=== PATIENT | male | born 1985 | race American Indian/Alaskan Native ===

== ENCOUNTER 2020-08-30 15:15 | Emergency (ER) | payer SELFPAY ==
[2020-08-30 16:48] VITALS: BP 113/70
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
[2020-08-30] MEDS ORDERED: oxyCODONE /ACETAMINOPHEN 5-325MG TAB PO ONE (21:18)
[2020-08-30] MEDS ORDERED: AMOXICILLIN/K CLAV 875/125MG TAB PO ONE (21:19)
[2020-08-30] MEDS ORDERED: IBUPROFEN 600 MG TAB PO ONE (21:19)
[2020-08-30] MEDS ORDERED: ONDANSETRON 4 MG ODT TAB PO ONE (21:19)
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
== END 2020-08-30 22:55 | disposition home or self-care (01) ==
LOC: ED 15:15
DX: S02.609A Fracture of mandible, unspecified, initial encounter for closed fracture (principal); S00.83XA Contusion of other part of head, initial encounter; J45.909 Unspecified asthma, uncomplicated; Z79.899 Other long term (current) drug therapy; Y04.8XXA Assault by other bodily force, initial encounter; Y93.89 Activity, other specified; Y92.410 Unspecified street and highway as the place of occurrence of the external cause; Y99.8 Other external cause status
CPT/HCPCS: 70486; Q0162

== ENCOUNTER 2021-12-06 17:25 | Emergency (ER) | payer SELFPAY ==
[2021-12-06 18:26] VITALS: BP 102/76
--- NOTE | 2021-12-06 21:21 | Emergency Department Report ---
ED General Adult HPI - General Chief complaint: Skin Rash Stated complaint: FACAE BREAKING OUT Time Seen by Provider: 12/06/21 20:45 Source: patient Mode of arrival: Ambulatory Limitations: No Limitations - History of Present Illness Initial comments: Patient 36-year-old male who presents with skin rash to bilateral arms legs and trunk for 1 week. Symptoms include itching burning stinging. There is no weeping no fever chills no shortness of breath no wheezing or stridor. Patient states history of asthma also endorses history of eczema. Patient denies other symptoms. Severity scale (0 -10): 7 - Related Data Previous Rx's Medication Instructions Recorded Last Taken Type Amoxicillin/Potassium Clav 1 each PO Q12H #20 tablet 08/30/20 Unknown Rx [Augmentin 875-125 Tablet] HYDROcodone/APAP 5-325 [[place] 1 each PO Q6HR PRN #12 tablet 08/30/20 Unknown Rx 5/325] Ibuprofen [Motrin] 600 mg PO Q8H PRN #30 tablet 08/30/20 Unknown Rx Sulfamethoxazole/Trimethoprim 1 each PO BID 7 Days #14 tab 12/06/21 Unknown Rx [Bactrim DS TAB] Triamcinolone Aceton 0.1% (Nf) 1 applic TP BID #1 tube 12/06/21 Unknown Rx [Kenalog (NF)] diphenhydrAMINE [Benadryl CAP] 25 mg PO Q8HR PRN #30 capsule 12/06/21 Unknown Rx predniSONE [Deltasone] 40 mg PO QDAY 5 Days #10 tab 12/06/21 Unknown Rx Allergies Allergy/AdvReac Type Severity Reaction Status Date / Time No Known Allergies Allergy Unverified 08/30/20 16:43 ED Review of Systems ROS: Stated complaint: FACAE BREAKING OUT Other details as noted in HPI Constitutional: denies: chills, fever Eyes: denies: eye pain, eye discharge, vision change ENT: denies: ear pain, throat pain Respiratory: denies: cough, shortness of breath, wheezing Cardiovascular: denies: chest pain, palpitations Endocrine: no symptoms reported Gastrointestinal: denies: abdominal pain, nausea, diarrhea Genitourinary: denies: urgency, dysuria Musculoskeletal: denies: back pain, joint swelling, arthralgia Skin: rash (Bilateral arms legs and trunk) Neurological: denies: headache, weakness, paresthesias Psychiatric: denies: anxiety, depression Hematological/Lymphatic: denies: easy bleeding, easy bruising ED Past Medical Hx - Past Medical History Hx Asthma: Yes Additional medical history: HOLE IN HEART. - Medications Home Medications: Home Medications Medication Instructions Recorded Confirmed Last Taken Type Amoxicillin/Potassium Clav 1 each PO Q12H #20 tablet 08/30/20 Unknown Rx [Augmentin 875-125 Tablet] HYDROcodone/APAP 5-325 [[place] 1 each PO Q6HR PRN #12 tablet 08/30/20 Unknown Rx 5/325] Ibuprofen [Motrin] 600 mg PO Q8H PRN #30 tablet 08/30/20 Unknown Rx Sulfamethoxazole/Trimethoprim 1 each PO BID 7 Days #14 tab 12/06/21 Unknown Rx [Bactrim DS TAB] Triamcinolone Aceton 0.1% (Nf) 1 applic TP BID #1 tube 12/06/21 Unknown Rx [Kenalog (NF)] diphenhydrAMINE [Benadryl CAP] 25 mg PO Q8HR PRN #30 capsule 12/06/21 Unknown Rx predniSONE [Deltasone] 40 mg PO QDAY 5 Days #10 tab 12/06/21 Unknown Rx ED Physical Exam - General Limitations: No Limitations General appearance: alert, in no apparent distress - Head Head exam: Present: normocephalic, normal inspection - Eye Eye exam: Present: PERRL, EOMI Pupils: Present: normal accommodation - ENT ENT exam: Present: mucous membranes moist - Neck Neck exam: Present: normal inspection, full ROM. Absent: tenderness, lymphadenopathy - Respiratory Respiratory exam: Present: normal lung sounds bilaterally. Absent: respiratory distress, wheezes, stridor, chest wall tenderness - Cardiovascular Cardiovascular Exam: Present: regular rate, normal rhythm, normal heart sounds. Absent: systolic murmur, diastolic murmur, rubs, gallop - GI/Abdominal GI/Abdominal exam: Present: soft. Absent: distended, tenderness - Rectal Rectal exam: Present: deferred - Extremities Exam Extremities exam: Present: normal inspection, full ROM, normal capillary refill. Absent: tenderness, pedal edema, joint swelling, calf tenderness - Back Exam Back exam: Present: normal inspection, full ROM. Absent: CVA tenderness (R), CVA tenderness (L) - Neurological Exam Neurological exam: Present: alert, oriented X3 - Psychiatric Psychiatric exam: Present: normal affect, normal mood - Skin Skin exam: Present: warm, dry, intact, rash (Mild erythema raised smooth bilaterally dry and flaky.), erythema ( Warm to touch), urticaria ED Course Vital Signs 12/06/21 18:22 Temperature 98.9 F Pulse Rate 67 Respiratory 17 Rate Blood Pressure 102/76 [Right] O2 Sat by Pulse 97 Oximetry ED Medical Decision Making - Medical Decision Making Is likely eczema with mild cellulitis plans DC to home with prescriptions. Skin care as directed. Follow-up with primary care doctor in 2 to 3 days. Return to emergency department should symptoms worsen. Patient verbalized agreement and understanding with discharge plan. Patient DC'd home in stable condition at this time. Critical care attestation.: If time is entered above; I have spent that time in minutes in the direct care of this critically ill patient, excluding procedure time. ED Disposition Clinical Impression: Eczema Cellulitis Qualifiers: Site of cellulitis: unspecified site Qualified Code(s): L03.90 - Cellulitis, unspecified Disposition: HOME / SELF CARE / HOMELESS Is pt being admited?: No Does the pt Need Aspirin: No Condition: Stable Instructions: Cellulitis, Adult, Eczema Additional Instructions: Take medication as prescribed, skin care as directed, follow-up with your primary care doctor in 2 to 3 days. Return to emergency department should symptoms worsen Prescriptions: Sulfamethoxazole/Trimethoprim [Bactrim DS TAB] 1 each PO BID 7 Days #14 tab diphenhydrAMINE [Benadryl CAP] 25 mg PO Q8HR PRN #30 capsule PRN Reason: itching allergies predniSONE [Deltasone] 40 mg PO QDAY 5 Days #10 tab Triamcinolone Aceton 0.1% (Nf) [Kenalog (NF)] 1 applic TP BID #1 tube Referrals: HARDIK RINCON MD [Staff Physician] - 3-5 Days Forms: Work/School Release Form(ED) Time of Disposition: 21:24
== END 2021-12-06 22:00 | disposition home or self-care (01) ==
LOC: ED 17:25
DX: L30.9 Dermatitis, unspecified (principal); L03.90 Cellulitis, unspecified; J45.909 Unspecified asthma, uncomplicated
CPT/HCPCS: 99282